=== PATIENT | male | born 2000 | race Caucasian/White ===

== ENCOUNTER 2022-01-30 11:07 | Outpatient (CLI) | payer OTHER, SELFPAY ==
--- NOTE | ~2022-01-30 | US_ITS ---
US breast RT limited DATE: 01/30/2022 11:43 INDICATION: Right breast lump near nipple TECHNIQUE: Real-time imaging and color flow imaging targeted to right breast lump COMPARISON: None FINDINGS: There is a parallel circumscribed hypoechoic solid lesion measuring up to 7 mm depth by 2.6 x 2.9 cm dimension, with through transmission, some surrounding and minimal internal color flow sign al on color flow imaging. The sonographic features suggest probable benign process . IMPRESSION: BI-RADS Category 3: Probably benign Recommendation: 6 month follow-up targeted right breast ultrasound Reviewed, dictated and finalized at [facility] Reviewed, dictated and finalized at [facility].
[2022-01-30 12:25] LABS: Basophils Percent Auto 0.5 % (0.2-1.2); Eosinophils Absolute Auto 0.1 K/mm3 (0-0.3); Eosinophils Percent Auto 2.2 % (0-4.4); Hematocrit 43.4 % (42.0-52.0); Hemoglobin 14.3 g/dL (14.0-18.0); Immature Granulocyte Absolute 0.01 K/mm3 (0.00-0.031); Immature Granulocyte Percent A 0.3 % (0-0.5); Lymphocytes Absolute Auto 1.31 K/mm3 (0.9-3.2); Lymphocytes Percent Auto 35.8 % (18.3-44.2); Mean Corpuscular HGB Conc 32.9 g/dl (32-36); Mean Corpuscular Hemoglobin 28.4 pg (26-34); Mean Corpuscular Volume 86.3 fl (80-100); Mean Platelet Volume 9.8 fl (7.4-10.4); Monocytes Absolute Auto 0.3 K/mm3 (0.1-0.6); Neutrophils Absolute Auto 1.9 K/mm3 (1.3-6.7); Neutrophils Percent Auto 52.2 % (45.5-73.1); Platelet Count Result 313 k/mm3 (150-375); Red Blood Count 5.03 M/mm3 (4.6-6.20); Red Cell Distribution Width 13.1 % (11.5-14.5); White Blood Count 3.7 K/mm3 (4.5-10.0)
[2022-01-30 12:43] LABS: Alanine Aminotransferase 22 U/L (6-50); Albumin Level 4.4 g/dL (3.7-5.6); Alkaline Phosphatase 30 U/L (58-237); Anion Gap 8 mmol/L (8-16); Aspartate Amino Transferase 29 U/L (17-59); Bilirubin,Total 0.5 mg/dL (0.2-1.3); Blood Urea Nitrogen 19 mg/dL (8-21); Calcium 8.7 mg/dL (8.9-10.7); Carbon Dioxide 27 mmol/L (22-30); Chloride 104 mmol/L (98-107); Cholesterol 157 mg/dL (0-200); Estimated Glomerular Filt Rate > 60; Glucose 83 mg/dL (65-110); HDL Direct 45 mg/dL; Potassium 4.2 mmol/L (3.4-5.0); Sodium 139 mmol/L (134-143); Triglycerides 40 mg/dL (<150)
[2022-01-30 12:54] LABS: LDL Cholesterol Direct 91 mg/dL
[2022-01-30 13:11] LABS: Hemoglobin A1C 5.3 % (<5.7)
[2022-01-30 13:15] LABS: Free T4 Free Thyroxine 1.35 ng/mL (0.78-2.19)
[2022-02-01 13:54] LABS: Prolactin 5.6 ng/mL (***)
[2022-02-04 10:30] LABS: Testosterone Free 69.1 pg/mL (35.0-155.0); Testosterone Total 480 ng/dL (250-1100)
[2022-02-06 16:49] LABS: Estrogen 100.4 pg/mL (ADULT: 60-190)
== END 2022-01-30 11:08 | disposition home or self-care (01) ==
PROVIDERS: PCP Physician Assistant; Visit Provider Physician Assistant
DX: N63.10 Unspecified lump in the right breast, unspecified quadrant (principal); Z13.220 Encounter for screening for lipoid disorders; Z13.1 Encounter for screening for diabetes mellitus; Z79.899 Other long term (current) drug therapy; R92.8 Other abnormal and inconclusive findings on diagnostic imaging of breast
CPT/HCPCS: 36415; 76642; 80053; 80061; 82672; 83036; 84146; 84402; 84403; 84439; 84443; 85025

== ENCOUNTER 2024-04-07 19:17 | Emergency (ER) | payer OTHER, SELFPAY ==
--- NOTE | ~2024-04-07 | XR_ITS ---
EXAMINATION: XR foot LT min 3V DATE: 04/07/2024 19:38 INDICATION: Left foot injury and pain. TECHNIQUE: 4 views of left foot were obtained. COMPARISON: None. FINDINGS: Alignment is normal. No fracture. There is mild osteoarthritis of first metatarsophalangeal joint. IMPRESSION: 1. Mild osteoarthritis of first metatarsophalangeal joint. Reviewed, dictated and finalized at [facility].
[2024-04-07 19:38] VITALS: BP 179/169; PULSE 135; RESP 16; TEMP 36.6; O2SAT 99
--- NOTE | 2024-04-07 19:41 | ED.LOWEXIN ---
HPI - Extremity Injury (Lower) General Chief Complaint: Extremity Injury, Lower Stated Complaint: INJURED L ANKLE Time Seen by Provider: 04/07/24 19:41 Source: patient, RN notes reviewed and old records reviewed Mode of arrival: ambulatory Limitations: no limitations History of Present Illness HPI Narrative: 23 year old male accompanied by significant other with complaints of injury to his left foot when he was playing basketball this evening at around 1830. He reports that he jumped up and came down on the side of his left foot. Patient reports that when he hit the ground he felt a popping sensation. Patient reports that he has increased pain when attempting to ambulate on foot. Patient states that he was participating in [employer]. MD complaint: foot injury (left) Onset (ago): hour(s) (today at 1830) Injury: Left: foot Type of Injury: other (rolled landing on lateral aspect of left foot) Place: street/outdoors Severity scale (1-10): 4 Treatments prior to arrival: NSAIDS Related Data Home Medications Medication Instructions Recorded Confirmed citalopram 20 mg tablet 20 mg PO DAILY 04/07/24 04/07/24 dextroamphetamine-amphetamine ER 20 mg PO DAILY 04/07/24 04/07/24 20 mg 24hr capsule,extend release Allergies Allergy/AdvReac Type Severity Reaction Status Date / Time cephalexin Allergy Intermediate Rash Unverified 04/07/24 19:25 albuterol Allergy Unknown Hyperactive Unverified 04/07/24 19:25 Review of Systems Review of Systems: CONSTITUTIONAL: Denies fever, chills, or sweats. EYES: Denies visual changes, redness, or discharge. ENT: Denies rhinorrhea, congestion, sore throat, or otalgia. CARDIOVASCULAR: Denies chest pain, palpitations, or edema. RESPIRATORY: Denies cough or dyspnea. GASTROINTESTINAL: Denies abdominal pain, nausea, vomiting, or diarrhea. GENITOURINARY: Denies dysuria or hematuria. SKIN: Denies rash or itching. MUSCULOSKELETAL: Denies back pain,positive for left lateral and anterior foot pain, or myalgia. NEUROLOGIC: Denies headache, numbness, or weakness. PSYCHIATRIC: Positive for history of anxiety or depression. All systems reviewed & are unremarkable except as noted in HPI and below PMFSH Past Medical History Medical History (Updated 04/08/24 @ 15:52 by Casie Shah NP) ADHD (attention deficit hyperactivity disorder) Anxiety and depression Social History Social History (Updated 04/08/24 @ 15:53 by Casie Shah NP) Smoking status: Never smoker Alcohol intake: current Alcohol use details: social Substance use type: does not use Occupation/Education: student Gender identity (if verbalized by the patient): Male Comments At time of signature, agree with nursing past medical, surgical, social and family history. There is no relevant family history pertinent to the presenting complaint Exam Narrative: GENERAL: Well-appearing, well-nourished, and in no acute distress. HEAD: Normocephalic, atraumatic. EYES: PERRLA and EOMI. ENT: Nares clear, no rhinorrhea or epistaxis. Mucous membranes moist. NECK: Supple.no lymphadenopathy CHEST: Clear to auscultation. No respiratory distress.SAO2 99% on room air HEART: Regular rate and rhythm. No murmur heard. Normal peripheral pulses. ABDOMEN: Soft, nontender, nondistended, normal active bowel sounds. EXTREMITIES: Normal range of motion. No edema. Exception noted to left foot with some swelling to lateral left foot,strong pedal pulse,left foot nail beds keya briskly, foot warm and pink SKIN: Warm, dry, no rash. NEURO: No focal deficits. Alert and oriented x3. Course Course Emergency Course: Patient is aware of diagnosis, understands and agrees to treatment plan.? Anticipatory guidance given.? Patient agrees to follow-up as directed and is aware of reasons to seek care at the emergency department. Portions of this record may have been created with voice recognition software Level of Care: [facility] Care Visit Vital S
[2024-04-07 19:47] VITALS: BP 138/80
--- NOTE | 2024-04-08 19:56 | PC.NURSE ---
0930 04/08/24 Patient returned for crutches-dispensed and able to demonstrate safe use.
== END 2024-04-07 19:57 | disposition home or self-care (01) ==
PROVIDERS: Emergency Provider Registered Nurse
DX: S90.32XA Contusion of left foot, initial encounter (principal); W19.XXXA Unspecified fall, initial encounter; Y93.67 Activity, basketball; F90.9 Attention-deficit hyperactivity disorder, unspecified type; F41.9 Anxiety disorder, unspecified; F32.A Depression, unspecified
CPT/HCPCS: 73630; 99213; G0463

== ENCOUNTER 2025-04-13 10:44 | Outpatient (CLI) | payer OTHER, SELFPAY ==
[2025-04-13 11:31] LABS: Add Urine Microscopic? NO; Appearance Urine Clear (Clear); Glucose Urine UA Negative (Negative); Leukocyte Esterase Ur Negative LEU/UL (Negative); Nitrate Urine Negative (Negative); Specific Grav Ur 1.005 (1.001-1.035)
[2025-04-13 11:32] LABS: Hematocrit 44.8 % (42.0-52.0); Hemoglobin 14.8 g/dL (14.0-18.0); Immature Granulocyte Percent A 0.0 % (0-0.5); Lymphocytes Absolute Auto 1.31 K/mm3 (0.9-3.2); Mean Corpuscular HGB Conc 33.0 g/dl (32-36); Mean Corpuscular Hemoglobin 28.4 pg (26-34); Mean Corpuscular Volume 86.0 fl (80-100); Nucleated Red Blood Cells Absolute Auto 0.000 K/mm3 (0.0-0.012); Nucleated Red Blood Cells Perc 0.0 % (0.0-0.2); Platelet Count Result 303 k/mm3 (150-375); Red Blood Count 5.21 M/mm3 (4.6-6.20); White Blood Count 4.0 K/mm3 (4.5-10.0)
[2025-04-13 11:51] LABS: Iron 65 ug/dL (49-181)
[2025-04-13 11:52] LABS: Alanine Aminotransferase 19 U/L (6-50); Albumin Level 4.5 g/dL (3.5-5.1); Alkaline Phosphatase 37 U/L (38-126); Anion Gap 8 mmol/L (4-12); Aspartate Amino Transferase 29 U/L (17-59); Bilirubin,Total 0.4 mg/dL (0.2-1.3); Blood Urea Nitrogen 13 mg/dL (9-20); Calcium 9.1 mg/dL (8.4-10.2); Carbon Dioxide 28 mmol/L (22-30); Chloride 101 mmol/L (98-107); Cholesterol 208 mg/dL (0-200); Estimated Glomerular Filt Rate > 60; Glucose 99 mg/dL (65-110); HDL Direct 52 mg/dL; Potassium 4.1 mmol/L (3.4-5.0); Sodium 137 mmol/L (137-145); Total Protein 7.3 g/dL (6.3-8.2); Triglycerides 40 mg/dL (<150)
[2025-04-13 12:00] LABS: Percent Iron Saturation 20 % (20-50)
[2025-04-13 12:11] LABS: Free T3 3.45 pg/mL (2.32-6.09)
[2025-04-13 12:22] LABS: Hemoglobin A1C 5.4 % (<5.7)
[2025-04-13 12:24] LABS: Thyroid Stimulating Hormone Reflex 2.820 uIU/mL (0.465-4.68)
[2025-04-13 12:25] LABS: Total Triiodothyronine (T3) 1.10 NG/ML (0.82-1.58)
[2025-04-13 12:48] LABS: Vitamin B12 790.0 pg/mL (239-931)
[2025-04-14 13:08] LABS: EBV Nuclear Antigen Ab, IgG 273.0 U/mL (0.0-17.9)
[2025-04-15 11:08] LABS: ANA by IFA Rfx Titer/Pattern Negative (.)
[2025-04-20 23:07] LABS: Free Testosterone (Direct) 9.5 pg/mL (9.3-26.5)
== END 2025-04-13 10:45 | disposition home or self-care (01) ==
LOC: ANHLAB 10:49
PROVIDERS: Visit Provider Nurse Practitioner Family
DX: Z79.899 Other long term (current) drug therapy (principal); R53.82 Chronic fatigue, unspecified
CPT/HCPCS: 36415; 80053; 80061; 81003; 82306; 82607; 83036; 83540; 83550; 84402; 84403; 84443; 84480; 84481; 85025; 86038; 86664; 86665